=== PATIENT | female | born 1990 | race Caucasian/White ===

== ENCOUNTER 2023-04-11 18:58 | Observation (INO) | payer BC ==
[~2023-04-11] VITALS: Ht 172.7 cm; Wt 72.6 kg
[2023-04-11] MEDS ORDERED: ONDANSETRON HCL 4MG/2ML INJ IV PRN (19:30)
[2023-04-11] MEDS ORDERED: LACTATED RINGERS 1,000 ML IV SCH ×2 (19:30)
[2023-04-11] MEDS ORDERED: ACETAMINOPHEN 500MG TABLET PO PRN (19:30)
[2023-04-11 19:57] LABS: CLARITY URINE CLOUDY (CLEAR); COLOR URINE YELLOW (YELLOW); GLUCOSE URINE NEGATIVE (NEGATIVE); KETONES URINE NEGATIVE (NEGATIVE); LEUKOCYTE ESTERASE URINE NEGATIVE (NEGATIVE); NITRITE URINE NEGATIVE (NEGATIVE); OCCULT BLOOD URINE 2+ (NEGATIVE); PH URINE 5.5 (4.5-8.0); PROTEIN URINE TRACE (NEGATIVE); SPECIFIC GRAVITY URINE 1.023 (1.005-1.030); UROBILINOGEN URINE 0.2 E.U./dL (0.2-1.0)
[2023-04-11 19:59] LABS: HEMATOCRIT. 30.3 % (36.0-48.0); HEMOGLOBIN. 10.2 g/dL (12.0-16.0); MEAN CORPUSCULAR HEMOGLOBIN 27.8 pg (28.0-32.0); MEAN CORPUSCULAR HGB CONC 33.5 g/dL (31.0-37.0); MEAN PLATELET VOLUME 8.5 fl (7.4-10.4); PLATELET 287 x1000/uL (130-400); RED BLOOD CELL COUNT 3.65 mill/uL (4.2-5.4); RED CELL DISTRIBUTION WIDTH 13.1 % (11.6-14.6); WHITE BLOOD COUNT 15.7 x1000/uL (4.5-11.0)
[2023-04-11 20:00] LABS: SQUAMOUS EPITHELIAL CELL URINE 2+ /lpf (RARE/1+); YEAST URINE NONE SEEN
[2023-04-11 20:01] LABS: CHLORIDE 109 mEq/L (98-107); INDEX HEMOLYSI 1 (1-3); INDEX ICTERIC 1 (1-4); INDEX LIPEMIC 1 (1-3); POTASSIUM 3.3 mEq/L (3.5-5.1); SODIUM 137 mEq/L (136-145)
[2023-04-11 20:04] LABS: DIFFERENTIAL COMMENT 1
[2023-04-11 20:09] LABS: ALANINE AMINOTRANSFERASE 14 IU/L (13-61); ASPARTATE AMINOTRANSFERASE 13 IU/L (15-37); BILIRUBIN TOTAL 0.1 mg/dL (0.1-1.0); CALCIUM 8.3 mg/dL (8.5-10.1); CARBON DIOXIDE 24 mEq/L (21-32); CREATININE 0.6 mg/dL (0.6-1.3); GLUCOSE 122 mg/dL (70-105); PROTEIN TOTAL 6.9 g/dL (6.0-8.3); UREA NITROGEN BLOOD 12 mg/dL (7-21)
[2023-04-11 20:24] LABS: BACTERIA URINE 1+; WBC URINE 0-2 /hpf (0-2)
[2023-04-11 20:25] LABS: CALCIUM OXALATE CRYSTALS URINE 1+ /lpf; MUCUS URINE TRACE /lpf (< = 2+)
[2023-04-11] MEDS ORDERED: PREN-176 PO (20:25)
[2023-04-11] MEDS ORDERED: USTE90DI SQ (20:25)
[2023-04-11] MEDS ORDERED: CEFAZOLIN 1000MG PREMIX 50 ML IV NR (20:30)
[2023-04-11 20:52] LABS: PLATELET ESTIMATE NORMAL
== END 2023-04-11 22:50 | disposition home or self-care (01) ==
LOC: 8EST NSY 18:58 → 8 EST LDRP 19:25
PROVIDERS: ADMIT Obstetrics & Gynecology; ATTEND Obstetrics & Gynecology
DX: O26.892 Other specified pregnancy related conditions, second trimester (principal); R10.32 Left lower quadrant pain; M54.9 Dorsalgia, unspecified; O62.9 Abnormality of forces of labor, unspecified; O21.2 Late vomiting of pregnancy; Z3A.21 21 weeks gestation of pregnancy
CPT/HCPCS: 59025; 96365; 96366; 80053; 81003; 85025; 36415; 76805; J0690; G0378 ×2; 96360; 99281; G0379